=== PATIENT | male | born 1960 | race Caucasian/White ===

== ENCOUNTER 2019-03-11 14:40 | Outpatient (RCR) | payer BC, SELFPAY ==
--- NOTE | 2019-03-11 16:51 | PTOPEVAL ---
Thank you for referring this patient to [facility]. Please review, sign, date and return this plan of care RUTH. I agree with and certify that the following plan of care is medically necessary. Referring Physician Date Admitting Provider: Attending Provider: PHYSICIAN NOT ON STAFF Referring Provider: *PT Outpatient Evaluation Start: 03/11/19 14:43 Freq: Status: Active Protocol: Document 03/11/19 14:45 SHANTEL (Rec: 03/11/19 16:50 SHANTEL [email or web address]) Therapy Assessment Status Assessment Status Assessment Status Evaluation Evaluation Information Problem Diagnosis s/p arthroscopic left shoulder , RC bioinductive implant Onset 03/03/19 Subjective Information Pt. reports that he underwent Query Text:As Reported By Patient/ surgery on 03/03/19. He states Family that his pain has been minimal. He reports that he is not wearing his sling at night, but states that he is wearing it through the day. He reports that he has not been performing any exercise at this time. He states that his goal is to regain normal left u.e. strength. Pain Assessment Timing of Pain Assessment Timing of Pain Assessment Pre-Treatment Pain Scale Pain Scale Used Numeric (1 - 10) Self Report Pain Assessment Left Shoulder(s) Reported Pain Level 4 Pain Score Pain Score 4: Self Report Upper Extremity Range of Motion General Upper Extremity Range of Motion Gross Upper Extremity Range of Motion right shoulder flexion PROM Comments 120 degrees, right shoulder ER PROM at 0 degrees abduction is 45 degrees, right shoulder IR PROM is 60 degrees. Pain noted at end range flexion and ER. PT Clinical Summary Clinical Summary Protocol: PTEVCODE Clinical Summary Pt. is a 58 year old male who enters the clinic post left rotator cuff repair. He presents with limited strength and ROM on this date. He is currently limited to PROM only . Continued treatment is indicated in order to improve shoulder strength and mobility to allow the pt. to perform
--- NOTE | 2019-04-26 13:27 | PTOPEVAL ---
Thank you for referring this patient to [facility]. Please review, sign, date and return this plan of care RUTH. I agree with and certify that the following plan of care is medically necessary. Referring Physician Date Admitting Provider: Attending Provider: PHYSICIAN NOT ON STAFF Referring Provider: *PT Outpatient Evaluation Start: 03/11/19 14:43 Freq: Status: Active Protocol: Document 04/26/19 11:00 Radha (Rec: 04/26/19 13:27 [facility] [email or web address]) Therapy Assessment Status Assessment Status Assessment Status Re-evaluation Evaluation Information Problem Diagnosis s/p L shoulder RC bioinductive implant Additional Evaluation Detail quick dash = 22% Subjective Information patient reports he feels good Query Text:As Reported By Patient/ this date. he reports at Family most his pain has been a 2/10 in the past week. he reports difficutly with lifting, reaching, and functional activities. he reports he is on a weight lifting restriction of 5lbs. he reports he is unable to return to full work duty at this time, but would be able to return to light duty if available. Pain Assessment Timing of Pain Assessment Timing of Pain Assessment Assessment Pain Scale Pain Scale Used Numeric (1 - 10) Self Report Pain Assessment Left Shoulder(s) Reported Pain Level 2 Current Pain Intensity 2 Lowest Pain Intensity 0 Greatest Pain Intensity 2 Pain Score Pain Score 2: Self Report Upper Extremity Range of Motion General Upper Extremity Range of Motion Gross Upper Extremity Range of Motion AROM L shoulder flex = 125 Comments degrees PROM L shoulder flex = 145 degrees with pain preventing further mobility AROM L shoulder ER = 35 degrees AROM L Shoulder IR = 50 degrees. Upper Extremity Muscle Strength Testing General Upper Extremity Strength Gross Upper Extremity Strength Comments L shoulder flex = 3+/5 L shoulder abd = 3+/5 L shoulder ER = 3+/5 patient presents with L shoulder elevation and trunk lean to the R side for
--- NOTE | 2019-05-24 11:27 | PTOPEVAL ---
Thank you for referring Sheldon Early to [facility]. Please review, sign, date and return this plan of care RUTH. I agree with and certify that the following plan of care is medically necessary. Referring Physician Date Admitting Provider: Attending Provider: PHYSICIAN NOT ON STAFF Referring Provider: *PT Outpatient Evaluation Start: 03/11/19 14:43 Freq: Status: Active Protocol: Document 05/24/19 10:10 [facility] (Rec: 05/24/19 11:24 [facility] [email or web address]) Therapy Assessment Status Assessment Status Assessment Status Re-evaluation Evaluation Information Problem Diagnosis s/p L shoulder RC bioinductive implant Additional Evaluation Detail quick dash = Subjective Information patient reports he feels Query Text:As Reported By Patient/ alright this date. he reports Family he is still weak in the L shoulder. he reports he is having apin still and was forced to take a pain pill yesterday. he reports he is wanting to continue therapy and is unable to return to work until back to his prior level strength and performance . Pain Assessment Timing of Pain Assessment Timing of Pain Assessment Assessment Pain Scale Pain Scale Used Numeric (1 - 10) Self Report Pain Assessment Left Shoulder(s) Reported Pain Level 3 Greatest Pain Intensity 6 Pain Score Pain Score 3: Self Report Upper Extremity Range of Motion General Upper Extremity Range of Motion Gross Upper Extremity Range of Motion AROM L shoulder flex = 135 Comments with compensated trunk extension and lateral lean to the R, PROM L shoulder flex = 155 with pain increased at end rom. AROM L shoulder ER = 50 degrees. AROM L shoulder IR = 60 degrees. Upper Extremity Muscle Strength Testing General Upper Extremity Strength Gross Upper Extremity Strength Comments L shoulder flex = 3+/5, ext = 4+/5, abd = 4/5, IR = 4+/5, ER = 3+/5 L elbow flex = 4/5, L elbow ext = 4/5 Palpation Assessment Palpation Palpation clicking/clunking noted with PROM L shoulder ER in 90/90 position
== END 2019-06-09 23:59 | disposition home or self-care (01) ==
LOC: CHSPT 14:40
DX: Z48.89 Encounter for other specified surgical aftercare (principal); Z98.890 Other specified postprocedural states
CPT/HCPCS: 97014; 97110; 97161; 97530; G0283

== ENCOUNTER 2019-06-14 10:06 | Outpatient (RCR) | payer BC, SELFPAY ==
--- NOTE | 2019-06-27 16:51 | PTOPEVAL ---
Thank you for referring Sheldon Early to [facility]. Please review, sign, date and return this plan of care RUTH. I agree with and certify that the following plan of care is medically necessary. Referring Physician Date Admitting Provider: Attending Provider: PHYSICIAN NOT ON STAFF Referring Provider: *PT Outpatient Evaluation Start: 06/23/19 15:52 Freq: Status: Active Protocol: Document 06/23/19 15:00 SHANTEL (Rec: 06/27/19 16:50 SHANTEL [email or web address]) Therapy Assessment Status Assessment Status Assessment Status Progress Evaluation Information Problem Diagnosis s/p left shoulder RC bioinductive implant Additional Evaluation Detail quick DASH=23% Subjective Information Pt. reports that he is Query Text:As Reported By Patient/ improving. He states that the Family left u.e. is still weak, espeically with overhead movement. He states that he is gradully improving, but still cannot lift any objects of significant weight. He reports that he would like to continue with PT in order to further address strength deficits until he returns to his doctor. Pain Assessment Pain Scale Pain Scale Used Numeric (1 - 10) Self Report Pain Assessment Left Shoulder(s) Reported Pain Level 3 Pain Score Pain Score 3: Self Report Upper Extremity Range of Motion General Upper Extremity Range of Motion Gross Upper Extremity Range of Motion left shoulder flexion AROM Comments against gravity 135 degrees without compensation noted. Pt. achieves 145 degrees passive shoudler flexion on the left. Pt. presents iwth 70 degrees active ER at the left shoulder against gravity. IR is assessed with Apleys Functional scratch test with pt. reaching the area of the lumbosacral junction with the left u.e. and the upper lumbar region with the right u.e. Upper Extremity Muscle Strength Testing General Upper Extremity Strength Gross Upper Extremity Strength Comments left shoulder flexion 4-/5 left shoulder abduction 4-/5 left shoulder extension 5/5
--- NOTE | 2019-07-07 11:51 | PTOPEVAL ---
Thank you for referring Sheldon Early to [facility]. Please review, sign, date and return this plan of care RUTH. I agree with and certify that the following plan of care is medically necessary. Referring Physician Date Admitting Provider: Attending Provider: PHYSICIAN NOT ON STAFF Referring Provider: *PT Outpatient Evaluation Start: 06/23/19 15:52 Freq: Status: Active Protocol: Document 07/07/19 11:01 SHANTEL (Rec: 07/07/19 11:46 SHANTEL [email or web address]) Therapy Assessment Status Assessment Status Assessment Status Discharge Evaluation Information Problem Diagnosis s/p left shoulder RC bioinductive implant Additional Evaluation Detail Quick DASH=23% Subjective Information Pt. reports that he is doing Query Text:As Reported By Patient/ exercise at home daily. He Family reports he has some concern with strength but needs to get back to work. Pain Assessment Pain Scale Pain Scale Used Numeric (1 - 10) Self Report Pain Assessment Left Shoulder(s) Reported Pain Level 1 Pain Score Pain Score 1: Self Report Upper Extremity Range of Motion General Upper Extremity Range of Motion Gross Upper Extremity Range of Motion left shoulder flexion AROM 140 Comments degrees. left shoulder ER PROM 85 degrees Pt. is able to reach the occiput with the left u.e. against gravity and reaches the lower lumbar region with combined left shoulder IR and extension. Pt. demonstrates full ROM in supine and semirecumbent positions with overhead reach. Continue to note slightly excessive scapular elevation with overhead reach against gravity, but improved compared last evaluation. Upper Extremity Muscle Strength Testing General Upper Extremity Strength Gross Upper Extremity Strength Comments left shoulder flexion 4-/5, left shoulder abduction 4-/5, left shoulder ER 4/5, left shoulder IR 5/5 PT Clinical Summary Clinical Summary Protocol: PTEVCODE PT Clinical Summary Pt. is currently independent with a HEP. He demonstrates continued weakness, but is
== END 2019-07-07 17:41 | disposition home or self-care (01) ==
LOC: CHSPT 10:06
DX: Z48.89 Encounter for other specified surgical aftercare (principal); Z98.890 Other specified postprocedural states
CPT/HCPCS: 97110; 97530

== ENCOUNTER 2020-01-24 11:17 | Outpatient (CLI) | payer BC, SELFPAY ==
[2020-01-24 13:18] LABS: SARS-CoV-2 Ag Negative (Negative)
== END 2020-01-24 11:18 | disposition home or self-care (01) ==
PROVIDERS: PCP Internal Medicine; Visit Provider Internal Medicine
DX: Z20.828 Contact with and (suspected) exposure to other viral communicable diseases (principal)
CPT/HCPCS: 87426

== ENCOUNTER 2022-01-08 14:23 | Outpatient (CLI) | payer OTHER, SELFPAY ==
--- NOTE | ~2022-01-08 | XR_ITS ---
EXAM: XR hand LT min 3V DATE: 01/08/2022 14:52 HISTORY: crushed hand 7mo ago, poor supervisor machine setter ROM, pain @ scaphoid area . COMPARISON: None available. FINDINGS: Normal mineralization. No fracture or dislocation. No lytic or blastic lesion. Mild osteoa rthritic type changes in the DIP and PIP joints of the fingers, the triscaphe joint, the trapeziometa carpal joint, the first through third MCP joints, and the interphalangeal joint of the thumb. Hooklik e osteophyte at the second metatarsal head. Degenerative subchondral cysts in multiple carpal bones. Old ulnar styloid fracture. Ulnar positive variance. Chondrocalcinosis. No erosion or periosteal pino ge. Soft tissues within normal limits. IMPRESSION: No acute osseous finding in the left hand. Scattered mild arthritic changes, detailed abo ve. Reviewed, dictated and finalized at location K. TRIC INSTALLER IMPRESSION: No acute osseous finding in the left hand. Scattered mild arthritic changes, detailed above.
== END 2022-01-08 14:24 | disposition home or self-care (01) ==
LOC: CHSIMG 14:30
PROVIDERS: PCP Internal Medicine; Visit Provider Plastic Surgery
DX: M19.042 Primary osteoarthritis, left hand (principal); S67.22XD Crushing injury of left hand, subsequent encounter
CPT/HCPCS: 73130

== ENCOUNTER 2022-02-28 10:53 | Outpatient (RCR) | payer OTHER, SELFPAY ==
--- NOTE | 2022-02-28 12:34 | OTOPEVAL1 ---
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 The patient reports that in a previous x -ray, there was no structural damage to the bone. Reported Pain Level Pain Score 2: Self Report Assessment OT Clinical Summary The patient is a 61 year old male who was referred to outpatient OT due to crush injury resulting in stiffness and pain in thumb and index finger of L UE. 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 The patient now demonstrates significantly decreased pinch strength, decreased school bus driver/teacher assistant strength, 8/10 pain, and numbness and tingling in thumb and index finger of left hand. 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 Plan of Care Interventions Therapeutic Exercise,Manual Therapy,Neuro Re- education,Therapeutic Activities,Hot Pack/Cold Pack,Electrical Stimulation,Ultrasound OT Services Indicated Yes Treatment Frequency and 2x/week for 5 weeks. Duration These treatments will address the objective and functional deficits as defined above. The patient will be advanced safely and appropriately in order for the patient to progress towards his/her prior level of function. Additional exercises will be introduced and as well as a comprehensive home exercise program upon discharge, if needed, ?to ensure carryover of functional gains achieved in the clinic. This treatment plan has been reviewed and agreement upon by the patient.
--- NOTE | 2022-03-28 10:42 | OTOPDC ---
Assessment and note entered by Kelsey Neri OT Evaluation Information Assessment Status Discharge Reported Pain Level Pain Score 1: Self Report Assessment OT Clinical Summary Since SOC, 02/28/22, the patient has demonstrated significant improvements in 1st and 2nd digit sensation, AROM, and strength affecting the patient's ability to perform daily tasks with decreased pain and improvement in accuracy/ strength. 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 The patient demonstrates decreased pain with pinching and gripping tasks than at SOC but continues to experience sporatic levels of sharp pain during pinch small objects such as picking up a puzzle piece or tying shoes. The patient reports soreness and sharp pains in L thumb at times radiating from on lateral aspect of thumb from proximal phalanx of thumb shooting to distal radius. The patient reports improvement in symptoms with good progress toward goals. The patient is discharged this date due to meeting goals and demonstrating plateau in pain management at this time. Plan of Care OT Services Indicated No
== END 2022-03-28 11:11 | disposition home or self-care (01) ==
LOC: CHSOT 10:53
PROVIDERS: Visit Provider Plastic Surgery
DX: M25.642 Stiffness of left hand, not elsewhere classified (principal)
CPT/HCPCS: 97110; 97140; 97165; 97530

== ENCOUNTER 2022-06-10 09:07 | Outpatient (CLI) | payer OTHER, BC, SELFPAY ==
--- NOTE | 2022-06-10 11:00 | NEURO_ITS ---
Impression: # Complains of numbness and pain in hands. # Bilateral Carpal Tunnel Syndrome, right more than left. # Left ulnar neuropathy across the elbow. # Needle/EMG exam not requested. Nerve Conduction Studies Anti Sensory Summary Table Stim Site NR Peak (ms) P-T Amp (?V) Site1 Site2 Delta-P (ms) Dist (cm) Osvaldo (m/s) Left Median Anti Sensory (2-3nd Digit) Wrist 4.2 15.4 Wrist 2-3nd Digit 4.2 14.0 33 Wrist 4.2 15.2 Wrist 2-3nd Digit 4.2 14.0 33 Right Median Anti Sensory (2-3nd Digit) NO RESPONSE Wrist NR Wrist 2-3nd Digit 14.0 Wrist NR Wrist 2-3nd Digit 14.0 Left Radial Anti Sensory (Base 1st Digit) Wrist 2.4 12.0 Wrist Base 1st Digit 2.4 0.0 Right Radial Anti Sensory (Base 1st Digit) Wrist 2.7 17.0 Wrist Base 1st Digit 2.7 0.0 Left Ulnar Anti Sensory (5th Digit) Wrist 2.8 33.4 Wrist 5th Digit 2.8 14.0 50 Right Ulnar Anti Sensory (5th Digit) Wrist 2.9 19.2 Wrist 5th Digit 2.9 14.0 48 Motor Summary Table Stim Site NR Onset (ms) O-P Amp (mV) Site1 Site2 Delta-0 (ms) Dist (cm) Osvaldo (m/s) Left Median Motor (Abd Poll Brev) Wrist 4.7 1.4 Elbow Wrist 5.9 32.0 54 Elbow 10.6 0.8 Right Median Motor (Abd Poll Brev) Wrist 6.4 1.4 Elbow Wrist 5.2 31.0 60 Elbow 11.6 3.1 Left Ulnar Motor (Abd Dig Minimi) Wrist 3.0 5.5 A Elbow Wrist 5.9 30.0 51 A Elbow 8.9 4.2 B Elbow Wrist 4.6 26.0 57 B Elbow 7.6 4.3 Right Ulnar Motor (Abd Dig Minimi) Wrist 3.3 4.4 A Elbow Wrist 6.3 34.0 54 A Elbow 9.6 3.7 F Wave Studies NR F-Lat (ms) L-R F-Lat (ms) Left Median (Mrkrs) (Abd Poll Brev) 33.36 1.59 Right Median (Mrkrs) (Abd Poll Brev) 34.95 1.59 Left Ulnar (Mrkrs) (Abd Dig Min) 33.75 0.02 Right Ulnar (Mrkrs) (Abd Dig Min) 33.73 0.02 MTDD
== END 2022-06-10 09:08 | disposition home or self-care (01) ==
PROVIDERS: PCP Internal Medicine; Visit Provider Plastic Surgery
DX: R20.0 Anesthesia of skin (principal); G56.03 Carpal tunnel syndrome, bilateral upper limbs; G56.22 Lesion of ulnar nerve, left upper limb
CPT/HCPCS: 95911

== ENCOUNTER 2022-07-02 13:15 | Outpatient (CLI) | payer OTHER, SELFPAY ==
--- NOTE | ~2022-07-02 | XR_ITS ---
EXAMINATION: 1. XR md joint inject/asp add 2. 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 TECHNIQUE: A time-out was performed to verify the patient's name, date of , and procedure to b e performed. The procedure including the risks, benefits, and alternatives was discussed with the pat ient. Risks discussed included bleeding and infection. The patient understood the risks and agreed to proceed. The skin overlying the left wrist was prepped and draped in usual sterile fashion. Anesth etic was administered with 1% lidocaine subcutaneously. A 23 G needle was advanced under fluoroscopi c guidance into the first carpometacarpal joint. Injection of 1 mL of Omnipaque 240 confirmed intra- articular position of the needle. Subsequently, injectate consisting of 1 mL 6 mg/mL betamethasone wa s instilled. A 23 G needle was advanced under fluoroscopic guidance into the midcarpal compartment. Injection of 1 mL of Omnipaque 240 confirmed intra-articular position of the needle. Subsequently, injectate cons isting of 1 mL 6 mg/mL betamethasone was instilled. There were no immediate complications. Fluoroscop y exposure time was 0.1 minutes. The total number of images was 3. FINDINGS: Real-time fluoroscopy demonstrates the needle in the left first carpometacarpal joint. Real -time fluoroscopy demonstrates the needle in the left midcarpal compartment. Contrast demonstrates co mmunication between the first carpometacarpal joint and midcarpal compartment. Patient's pain prior t o procedure:3/10. Patient's pain following the procedure: 0/10. IMPRESSION: 1. Fluoroscopy guided left first carpometacarpal joint injection of steroid. 2. Fluoroscopy guided left midcarpal joint compartment injection of steroid. Reviewed, dictated and finalized at location A. IMPRESSION: 1. Fluoroscopy guided left first carpometacarpal joint injection of steroid. 2. Fluoroscopy guided left midcarpal joint compartment injection of steroid.
== END 2022-07-02 13:16 | disposition home or self-care (01) ==
LOC: ANHIMG 13:16
PROVIDERS: PCP Internal Medicine; Visit Provider Plastic Surgery
DX: M19.032 Primary osteoarthritis, left wrist (principal); M18.12 Unilateral primary osteoarthritis of first carpometacarpal joint, left hand
CPT/HCPCS: 20605; 77002; J0702; Q9966